=== PATIENT | male | born 1990 | race Hispanic/Latino ===

== ENCOUNTER 2017-05-08 18:43 | Emergency (ER) | payer SELFPAY ==
[2017-05-08 18:43] VITALS: BMI 25.1
[2017-05-08 18:49] VITALS: BP 158/89; PULSE 97; RESP 16; TEMP 98.1; O2SAT 97
--- NOTE | 2017-05-08 20:35 | C.PDOC ---
History Of Present Illness 26 year old male with a history of left wrist fracture in past presents to the ED with complaints of pain with movement of the left wrist. Patient states while driving he turned the steering wheel with the left wrist and felt sudden onset of pain. He denies any recent trauma or other complaints at this time. Time Seen by Provider: 05/08/17 19:08 Chief Complaint (Nursing): Upper Extremity Problem/Injury History Per: Patient History/Exam Limitations: no limitations Onset/Duration Of Symptoms: Hrs, Sudden Onset Current Symptoms Are (Timing): Still Present Quality: "Pain" Exacerbating Factor(s): Movement Recent travel outside of the [place]: No Additional History Per: Prior Records Past Medical History Reviewed: Historical Data, Nursing Documentation, Vital Signs Vital Signs: Last Vital Signs Temp 98.1 F 05/08/17 18:47 Pulse 97 H 05/08/17 18:47 Resp 16 05/08/17 18:47 BP 158/89 H 05/08/17 18:47 Pulse Ox 97 05/08/17 22:48 - Medical History PMH: Asthma, Back Problems, Migraine - [facility] Procedures CLOSURE SKIN & SUBCUTANEOUS NEC (11/20/13) INJECT/INFUSE NEC (09/22/13) Family History: States: Unknown Family Hx - Social History Hx Tobacco Use: Yes Hx Alcohol Use: No Hx Substance Use: No - Immunization History Hx Tetanus Toxoid Vaccination: No Hx Influenza Vaccination: No Hx Pneumococcal Vaccination: No Review Of Systems Constitutional: Negative for: Fever, Chills Cardiovascular: Negative for: Chest Pain Respiratory: Negative for: Shortness of Breath Musculoskeletal: Positive for: Hand Pain (left wrist pain ) Neurological: Negative for: Weakness, Numbness Physical Exam - Physical Exam Appears: Non-toxic, No Acute Distress Skin: Warm, Dry Head: Atraumatic, Normacephalic Eye(s): bilateral: Normal Inspection, PERRL, EOMI Oral Mucosa: Moist Neck: Normal ROM, Supple Respiratory: No Wheezing Extremity: Normal ROM (Full ROM of the left wrisr ), Tenderness (tenderness to the dorsal left wrist), Capillary Refill (good capillary refill, less than 2 seconds ), No Deformity, Swelling (mild swelling to the dorsal left wrist ) Pulses: Left Radial: Normal, Right Radial: Normal Neurological/Psych: Normal Motor, Normal Sensation Gait: Steady ED Course And Treatment O2 Sat by Pulse Oximetry: 97 (room air ) Pulse Ox Interpretation: Normal Progress Note: X-ray positive old avulsion fracture of the distal ulna. Medical Decision Making Medical Decision Making: The xray shows evidence of old fracture, no acute fractures at this time. Velcro wrist splint was applied to the left wrist with good relief. Disposition - Disposition Referrals: Delta Perez III, MD [Staff Provider] - John Koroma MD [Staff Provider] - Disposition: HOME/ ROUTINE Disposition Time: 20:38 Condition: GOOD Additional Instructions: Follow up with the Orthopedist within 1-2 days, Return if worsened. Instructions: Wrist Sprain (ED) Forms: [facility] (Irish), Work Excuse - Clinical Impression Clinical Impression: Wrist sprain - Scribe Statement The provider has reviewed the documentation as recorded by the Scribe Rupinder Barnes All medical record entries made by the Scribe were at my direction and personally dictated by me. I have reviewed the chart and agree that the record accurately reflects my personal performance of the history, physical exam, medical decision making, and the department course for this patient. I have also personally directed, reviewed, and agree with the discharge instructions and disposition.
--- NOTE | 2017-05-09 08:20 | RAD ---
Left wrist four views History: Injury. Comparison: 09/16/2015 Findings: Again identified are displaced comminuted fracture deformities of the ulnar styloid with persistent 3.5 millimeter distraction of the distal fracture fragments. Negative ulnar variance. Question minimal diastases of the scapholunate interval measuring up to 3.7 millimeters. Narrowing of the radiocarpal joint space. Impression: Again identified are displaced comminuted fracture deformities of the ulnar styloid with persistent 3.5 millimeter distraction of the distal fracture fragments. Negative ulnar variance. Question minimal diastases of the scapholunate interval measuring up to 3.7 millimeters. Narrowing of the radiocarpal joint space. If pain persists, consider MRI.
== END 2017-05-08 20:42 | disposition home or self-care (01) ==
LOC: C.ER 18:43
DX: S63.502A Unspecified sprain of left wrist, initial encounter (principal); X58.XXXA Exposure to other specified factors, initial encounter

== ENCOUNTER 2017-10-21 15:10 | Emergency (ER) | payer MEDICAID, OTHER ==
[2017-10-21 15:18] VITALS: BMI 24.3
[2017-10-21 15:29] VITALS: BP 129/76; PULSE 84; RESP 20; TEMP 97.8; O2SAT 100
--- NOTE | 2017-10-21 15:47 | C.PDOC ---
History Of Present Illness 27 year old male presents to the ED for evaluation after he slipped and fell on snow yesterday. Patient sustained a mild contusion and abrasion to his left knee and is requesting work note. Patient denies head injury, LOC, extremity numbness/weakness. Time Seen by Provider: 10/21/17 15:39 Chief Complaint (Nursing): Lower Extremity Problem/Injury Past Medical History Vital Signs: Last Vital Signs Temp 97.8 F 10/21/17 15:18 Pulse 84 10/21/17 15:18 Resp 20 10/21/17 15:18 BP 129/76 10/21/17 15:18 Pulse Ox 100 10/21/17 15:47 - Medical History PMH: Asthma, Back Problems, Migraine Denies: Depression - [facility] Procedures CLOSURE SKIN & SUBCUTANEOUS NEC (11/20/13) INJECT/INFUSE NEC (09/22/13) Family History: States: Unknown Family Hx - Social History Hx Tobacco Use: Yes Hx Alcohol Use: No Hx Substance Use: No - Immunization History Hx Tetanus Toxoid Vaccination: No Hx Influenza Vaccination: No Hx Pneumococcal Vaccination: No ED Course And Treatment O2 Sat by Pulse Oximetry: 100 (on RA) Pulse Ox Interpretation: Normal Medical Decision Making Medical Decision Making: superficial L knee contusion/abrasion knee exam nl Disposition Doctor Will See Patient In The: Office Counseled Patient/Family Regarding: Studies Performed, Diagnosis - Disposition Referrals: Wanda De Dios MD [Staff Provider] - Disposition: HOME/ ROUTINE Disposition Time: 15:46 Condition: GOOD Additional Instructions: continue ice packs and motrin 400-600 mg every 6 hours as needed Instructions: Contusion in Adults (ED), Abrasion (ED) Forms: [facility] (Malay), Work Excuse - Clinical Impression Clinical Impression: Contusion of knee, left, Abrasion - Scribe Statement The provider has reviewed the documentation as recorded by the Scribe (Janna Virk) Provider Attestation: All medical record entries made by the Scribe were at my direction and personally dictated by me. I have reviewed the chart and agree that the record accurately reflects my personal performance of the history, physical exam, medical decision making, and the department course for this patient. I have also personally directed, reviewed, and agree with the discharge instructions and disposition.
== END 2017-10-21 16:09 | disposition home or self-care (01) ==
LOC: C.ER 15:10
DX: S80.02XA Contusion of left knee, initial encounter (principal); W00.0XXA Fall on same level due to ice and snow, initial encounter; Y92.89 Other specified places as the place of occurrence of the external cause

== ENCOUNTER 2018-01-30 23:27 | Emergency (ER) | payer OTHER ==
[2018-01-30 23:27] VITALS: BMI 24.3
[2018-01-30 23:41] VITALS: RESP 18
[2018-01-30] MEDS ORDERED: guaiFENesin 100 mg/5 ml Syrup UD PO STA (23:58)
--- NOTE | 2018-01-31 00:01 | C.PDOC ---
History Of Present Illness 27 year old male presents to the ED for evaluation of nasal congestion and a dry , non-productive cough which began a few days ago. Patient states he took one tablet of his 's allergy medication which improved his nasal congestion. He also reports taking a few doses of Penicillin (which he had sitting around) without significant relief. 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 Patient reports history of seasonal allergies but not taking any allergy meds yet. Admits to smoking 1 pack of cigarettes/day. Patient has history of chronic pain due to arthritis and normally experiences pain around his neck. He has been taking 1-2 tablets of Percocet/week for the past few months. Review of patient's [facility] shows that he received prescriptions for 60 tablets of Percocet/month by Dr. Curt Virk. Patient also notes he takes Ambien to help him sleep (working overnight and sleeping during the day). Patient also occasionally uses his albuterol inhaler with some relief. Patient denies fever, chills, nausea, vomiting and has no other complaints at this time. Time Seen by Provider: 01/30/18 23:47 Chief Complaint (Nursing): Cough, Cold, Congestion History Per: Patient History/Exam Limitations: no limitations Onset/Duration Of Symptoms: Days Current Symptoms Are (Timing): Still Present Associated Symptoms: Cough, Nasal Congestion. denies: Fever, Chills, Sputum, Nausea, Vomiting Additional History Per: Patient Past Medical History Reviewed: Historical Data, Nursing Documentation, Vital Signs Vital Signs: Last Vital Signs Temp 197.7 F H 01/31/18 00:17 Pulse 75 01/31/18 00:17 Resp 18 01/31/18 00:17 BP 125/78 01/31/18 00:17 Pulse Ox 100 02/02/18 13:50 - Medical History PMH: Asthma, Back Problems, Migraine Denies: Depression, Chronic Kidney Disease Surgical History: No Surg Hx - [facility] Procedures CLOSURE SKIN & SUBCUTANEOUS NEC (11/20/13) INJECT/INFUSE NEC (09/22/13) Family History: States: Unknown Family Hx - Social History Hx Tobacco Use: Yes Hx Alcohol Use: No Hx Substance Use: No - Immunization History Hx Tetanus Toxoid Vaccination: No Hx Influenza Vaccination: No Hx Pneumococcal Vaccination: No Review Of Systems Constitutional: Negative for: Fever, Chills ENT: Positive for: Nose Congestion Respiratory: Positive for: Cough. Negative for: Sputum Gastrointestinal: Negative for: Nausea, Vomiting Physical Exam - Physical Exam Appears: Non-toxic, No Acute Distress, Other (cigarette odor noted, normal painless FROM neck noted (sitting with head hanging while texting on phone)) Skin: Normal Color, Warm, Dry Head: Atraumatic, Normacephalic Eye(s): bilateral: Normal Inspection Ear(s): Bilateral: Normal Nose: No Discharge, Other (nasal congestion bilaterally ) Oral Mucosa: Moist Throat: Erythema (mild ), No Exudate, No Other (cobblestone ) Neck: Supple Chest: Symmetrical, No Deformity, No Tenderness Cardiovascular: Rhythm Regular, No Murmur Respiratory: Normal Breath Sounds, No Rales, No Rhonchi, No Wheezing Extremity: Normal ROM, Capillary Refill (less than 2 seconds ) Neurological/Psych: Oriented x3, Normal Speech, Normal Cognition ED Course And Treatment O2 Sat by Pulse Oximetry: 100 (on RA) Pulse Ox Interpretation: Normal Progress Note: Motrin PO and Robitussin PO administered. Reevaluation Time: 00:50 Reassessment Condition: Improved - Physician Consult Information Outcome Of Conversation: 1345 ON 02/02/18. D/W PMD Dr. Curt Virk, says pt claims he's using all his percocet every months. Disconnect between pt's ED story and lack of any supporting pathology/imaging to warrant such an extensive narcotics regimen which pt admits to taking taking while @ work while moving heavy objects is concerning and is suspicious of diverting. Alternative treatment modalities to be explored, and PMD aware this suspicious activity is required to be reported to [facility], which is submitted by email today Medical Decision Making Medical Decision Making: nasal congestion and dry cough c/w season allergies vs URI viral syndrome Disposition Doctor Will See Patient In The: Office Counseled Patient/Family Regarding: Studies Performed, Diagnosis - Disposition Referrals: Codie Virk MD [Staff Provider] - Disposition: HOME/ ROUTINE Disposition Time: 00:01 Condition: GOOD Additional Instructions: seasonal allergies: 1 spray of flonase to each nostril twice a day URI/Viral Syndrome Dayquil/Nyquil for symptomatic relief. continue albuterol puffer 2 puffs every 3-4 hours as needed Curb cigarette smoking as much as possible while feeling sick- makes cough and viral bronchitis worse. Chronic pain: As you are not using the full 60 tabs of Percocet prescribed per month, you should have Dr Curt Virk reduce the number of Percocet prescribed per month. This will be discussed with Dr. Curt Virk This will be reported to [facility]- Drug Monitoring program, as required by law. Seek alternatives for your chronic neck pain issues. You are advise to NOT take Percocet while at work for fear of a work related accident while taking narcotics on the job. Prescriptions: Fluticasone Nasal [Flonase] 1 spr NS BID #1 spr Instructions: Seasonal Allergies in Adults, Viral Syndrome (DC) Forms: [facility] (Maltese) - Clinical Impression Clinical Impression: Viral disease, Nasal congestion, Chronic pain - Scribe Statement The provider has reviewed the documentation as recorded by the Scribe (Janna Virk) Provider Attestation: All medical record entries made by the Scribe were at my direction and personally dictated by me. I have reviewed the chart and agree that the record accurately reflects my personal performance of the history, physical exam, medical decision making, and the department course for this patient. I have also personally directed, reviewed, and agree with the discharge instructions and disposition.
[2018-01-31] MEDS ORDERED: guaiFENesin 100 mg/5 ml Syrup UD ONE (00:06)
[2018-01-31 00:17] VITALS: BP 125/78; PULSE 75; TEMP 197.7
[2018-01-31 00:28] VITALS: O2SAT 100
== END 2018-01-31 00:30 | disposition home or self-care (01) ==
LOC: C.ER 23:27
DX: B34.9 Viral infection, unspecified (principal); R09.81 Nasal congestion; G89.29 Other chronic pain; Z87.891 Personal history of nicotine dependence

== ENCOUNTER 2018-07-08 01:50 | Emergency (ER) | payer OTHER ==
[2018-07-08 01:50] VITALS: BMI 24.3
[2018-07-08] MEDS ORDERED: Bacitracin Ointment 30 GM TUBE TOP ONE (03:14)
[2018-07-08] MEDS ORDERED: Bacitracin 500 Units/gm Oint Foilpak UD ONE (03:16)
[2018-07-08 03:25] VITALS: BP 116/74; PULSE 89; RESP 17; TEMP 98.1; O2SAT 98
--- NOTE | 2018-07-08 03:28 | C.PDOC ---
History Of Present Illness 28 year old male presents to the ER after sustaining a laceration 1 hour [employer]. Patient works at [employer] and while working cut the dorsal aspect of his right hand near his thumb. Denies weakness or numbness. Time Seen by Provider: 07/08/18 02:03 Chief Complaint (Nursing): Abnormal Skin Integrity History Per: Patient History/Exam Limitations: no limitations Onset/Duration Of Symptoms: Hrs (1) Current Symptoms Are (Timing): Still Present Location Of Injury: Right: Hand Quality Of Symptoms: Other (Laceration) Past Medical History Reviewed: Historical Data, Nursing Documentation, Vital Signs Vital Signs: Last Vital Signs Temp 98.1 F 07/08/18 03:24 Pulse 89 07/08/18 03:24 Resp 17 07/08/18 03:24 BP 116/74 07/08/18 03:24 Pulse Ox 98 07/08/18 03:24 - Medical History PMH: Asthma, Back Problems, Migraine Denies: Depression, Chronic Kidney Disease - [facility] Procedures CLOSURE SKIN & SUBCUTANEOUS NEC (11/20/13) INJECT/INFUSE NEC (09/22/13) Family History: States: Unknown Family Hx - Social History Hx Tobacco Use: Yes Hx Alcohol Use: No Hx Substance Use: No - Immunization History Hx Tetanus Toxoid Vaccination: No Hx Influenza Vaccination: No Hx Pneumococcal Vaccination: No Review Of Systems Skin: Positive for: Other (Laceration) Neurological: Negative for: Weakness, Numbness Physical Exam - Physical Exam Appears: Non-toxic Skin: Warm, Dry Head: Atraumatic, Normacephalic Eye(s): bilateral: Normal Inspection Extremity: Normal ROM (x4), Capillary Refill (<2 seconds), Other (1.5cm laceration to dorsal aspect of right hand near thumb. Right hand neurovascularly intact, able to flex and extend.) Pulses: Left Radial: Normal, Right Radial: Normal Neurological/Psych: Oriented x3, Normal Speech, Normal Motor, Normal Sensation ED Course And Treatment O2 Sat by Pulse Oximetry: 98 (room air) Pulse Ox Interpretation: Normal Laceration - Laceration Repair right hand Wound Length (In cm): 1.5 Description Of Wound: Linear Wound Cleansed With: Betadine, Sterile Saline Anesthesia: Lidocaine 1% Wound Examination: Irrigated With Saline, No FB With Wound Exploration, No Tendon Injury With Wound Exploration Wound Closure: Suture (three) Suture Technique And Material Used: Nylon (4-0) Wound Complexity: Simple Medical Decision Making Medical Decision Making: Patient tolerated laceration repair without any difficulty, wound was cleansed and dressed. Will discharge home with Rx, proper wound care instructions, and instructions to follow up for suture removal. Disposition - Disposition Referrals: Codie Virk MD [Staff Provider] - Disposition: HOME/ ROUTINE Disposition Time: 03:30 Condition: STABLE Additional Instructions: Wash the wound twice a day with soap and water starting Wednesday. Sutures to be removed within 7 days. Prescriptions: Bacitracin Ointment [Bacitracin] 30 gm TOP BID #1 tube Instructions: Laceration Repair Forms: [facility] (Nepali), Work Excuse - Clinical Impression Clinical Impression: Hand laceration - Scribe Statement The provider has reviewed the documentation as recorded by the Scribe Iker Gong All medical record entries made by the Scribe were at my direction and personally dictated by me. I have reviewed the chart and agree that the record accurately reflects my personal performance of the history, physical exam, medical decision making, and the department course for this patient. I have also personally directed, reviewed, and agree with the discharge instructions and disposition.
== END 2018-07-08 03:47 | disposition home or self-care (01) ==
LOC: C.ER 01:50
DX: S61.411A Laceration without foreign body of right hand, initial encounter (principal); W45.8XXA Other foreign body or object entering through skin, initial encounter; Y92.512 Supermarket, store or market as the place of occurrence of the external cause; Y99.0 Civilian activity done for income or pay

== ENCOUNTER 2018-07-31 20:37 | Emergency (ER) | payer OTHER ==
[2018-07-31 20:37] VITALS: BMI 24.3
[2018-07-31 20:50] VITALS: BP 139/83; PULSE 82; RESP 16; TEMP 98.2; O2SAT 98
--- NOTE | 2018-07-31 20:58 | C.PDOC ---
History Of Present Illness 28 year old male presents to the ED for suture removal. Patient has a 3 suture well healed wound at the base of the right thumb. Denies any fever, chills, drainage, erythema, or any other symptoms. Time Seen by Provider: 07/31/18 20:47 Chief Complaint (Nursing): Suture/Staple Removal History Per: Patient History/Exam Limitations: no limitations Current Symptoms Are (Timing): Gone Severity: None Past Medical History Reviewed: Historical Data, Nursing Documentation, Vital Signs Vital Signs: Last Vital Signs Temp 98.2 F 07/31/18 20:44 Pulse 82 07/31/18 20:44 Resp 16 07/31/18 20:44 BP 139/83 07/31/18 20:44 Pulse Ox 98 07/31/18 20:44 - Medical History PMH: Asthma, Back Problems, Migraine Denies: Depression, Chronic Kidney Disease Other Surgeries: Hx of surgeries - [facility] Procedures CLOSURE SKIN & SUBCUTANEOUS NEC (11/20/13) INJECT/INFUSE NEC (09/22/13) Family History: States: No Known Family Hx - Social History Hx Tobacco Use: Yes Hx Alcohol Use: No Hx Substance Use: No - Immunization History Hx Tetanus Toxoid Vaccination: No Hx Influenza Vaccination: No Hx Pneumococcal Vaccination: No Review Of Systems Except As Marked, All Systems Reviewed And Found Negative. Constitutional: Negative for: Fever Eyes: Negative for: Pain ENT: Negative for: Ear Pain Gastrointestinal: Negative for: Nausea, Vomiting Musculoskeletal: Negative for: Hand Pain Skin: Positive for: Other Neurological: Negative for: Weakness, Numbness Physical Exam - Physical Exam Appears: Non-toxic Skin: Warm, Dry, Other (3 suture healed wound at the base of the right thumb) Head: Atraumatic, Normacephalic Eye(s): bilateral: Normal Inspection Nose: Normal Oral Mucosa: Moist Neck: Supple Extremity: Normal ROM, Capillary Refill (< 2 sec), No Deformity, No Swelling Pulses: Left Radial: Normal, Right Radial: Normal Neurological/Psych: Oriented x3, Normal Motor, Normal Sensation Gait: Steady ED Course And Treatment O2 Sat by Pulse Oximetry: 98 (on RA) Pulse Ox Interpretation: Normal Medical Decision Making Medical Decision Making: Procedure: suture removal done by me 3 suture healed wound at the base of the right thumb. Sutures removed without di fficulty by me. Patient tolerated procedure well. Disposition - Disposition Referrals: [facility] [Outside] Disposition: HOME/ ROUTINE Disposition Time: 20:58 Condition: STABLE Additional Instructions: Return if worsened. Instructions: Stitches Removal Forms: [facility] (Khmer), Work Excuse - Clinical Impression Clinical Impression: Removal of suture - PA / RUBBER MIXER / Resident Statement MD/DO has reviewed & agrees with the documentation as recorded. - Scribe Statement The provider has reviewed the documentation as recorded by the Scribe Dennise Villafuerte All medical record entries made by the Manuelibe were at my direction and personally dictated by me. I have reviewed the chart and agree that the record accurately reflects my personal performance of the history, physical exam, medical decision making, and the department course for this patient. I have also personally directed, reviewed, and agree with the discharge instructions and disposition.
== END 2018-07-31 21:01 | disposition home or self-care (01) ==
LOC: C.ER 20:37
DX: Z48.02 Encounter for removal of sutures (principal); Z72.0 Tobacco use